=== PATIENT | female | born 2000 | race Caucasian/White ===

== ENCOUNTER 2025-01-08 18:02 | Emergency (ER) | payer MEDICAID ==
--- NOTE | 2025-01-08 19:40 | ED ---
Female Urogenital HPI - General Chief complaint: Vaginal Bleeding Stated complaint: nausea, back pain,early Time Seen by Provider: 01/08/25 19:38 Source: patient, RN notes reviewed Mode of arrival: ambulatory Limitations: no limitations - History of Present Illness Initial comments: 24-year-old female presenting for vaginal bleeding in . Reports light spotting began today. Reports pink on the toilet paper when she wipes and a small amount of blood in her underwear. Believes the spotting has now resolved. She also reports left-sided abdominal cramping worsening today and low back cramping over the past 2 weeks. States she just recently had a positive at-home test 2 days ago. Last menstrual period was December 13. States she had an when she was 15. - Related Data Allergies Allergy/AdvReac Type Severity Reaction Status Date / Time latex Allergy Rash/Hives Verified 01/08/25 18:10 amoxicillin AdvReac Diarrhea Verified 01/08/25 18:10 clavulanic acid AdvReac Diarrhea Verified 01/08/25 18:10 [From Augmentin] Review of Systems ROS Statement: Those systems with pertinent positive or pertinent negative responses have been documented in the HPI. ROS Other: All systems not noted in ROS Statement are negative. Past Medical History Past Medical History: No Reported History History of Any Multi-Drug Resistant Organisms: None Reported Past Surgical History: Adenoidectomy, Orthopedic Surgery, Tonsillectomy Past Psychological History: Bipolar, Depression Smoking Status: Former smoker Past Alcohol Use History: Rare Past Drug Use History: Marijuana General Exam Limitations: no limitations General appearance: alert, in no apparent distress Head exam: Present: atraumatic, normocephalic, normal inspection GI/Abdominal exam: Present: soft, normal bowel sounds. Absent: distended, tenderness, guarding, rebound, rigid Back exam: Absent: CVA tenderness (R), CVA tenderness (L) Neurological exam: Present: alert, oriented X3 Psychiatric exam: Present: normal affect, normal mood Skin exam: Present: warm, dry, intact, normal color. Absent: rash Course Vital Signs 01/08/25 18:03 Temperature 97.8 F Pulse Rate 76 Respiratory 16 Rate Blood Pressure 135/80 O2 Sat by Pulse 99 Oximetry Medical Decision Making - Medical Decision Making Was pt. sent in by a medical professional or institution (Dr., PA, BOWLING ALLEY MANAGER, urgent care, hospital, or snf...) When possible be specific @ -No Did you speak to anyone other than the patient for history (EMS, parent, family, police, friend...)? What history was obtained from this source @ -No Did you review nursing and triage notes (agree or disagree)? Why? @ -I reviewed and agree with nursing and triage notes Were old charts reviewed (outside hosp., previous admission, EMS record, old EKG, old radiological studies, urgent care reports/EKG's, snf records)? Report findings @ -No old charts were reviewed Differential Diagnosis (chest pain, altered mental status, abdominal pain women, abdominal pain men, vaginal bleeding, weakness, fever, dyspnea, syncope, headache, dizziness, GI bleed, back pain, seizure, CVA, palpatations, mental health, musculoskeletal)? @ -Differential Vaginal Bleeding: Spontaneous , threatened , molar , ectopic , bloody show, incompetent cervix, abruptioplacenta, placenta previa, uterine rupture, dysfunctional uterine bleeding, hemorrhage, uterine fibroids, this is not meant to be an all-inclusive list. EKG interpreted by me (3pts min.). @ -None X-rays interpreted by me (1pt min.). @ -None done CT interpreted by me (1pt min.). @ -None done U/S interpreted by me (1pt. min.). @ - ultrasound reveals no intrauterine gestation, complex area within the right ovary with increased lateral color flow, free fluid within the pelvis What testing was considered but not performed or refused? (CT, X-rays, U/S, labs)? Why? @ -None What meds were considered but not given or refused? Why? @ -None Did you discuss the management of the patient with other professionals (professionals i.e. AMANDA Prado, BOWLING ALLEY MANAGER, lab, RT, psych nurse, social group worker, pole framer machine, teacher, investment officer, manager case)? Give summary @ -I spoke with Dr. Amato on-call OB who recommends repeat hCG in 48 hours and close follow-up for repeat ultrasound Was smoking cessation discussed for >3mins.? @ -No Was critical care preformed (if so, how long)? @ -No Were there social determinants of health that impacted care today? How? (Homelessness, low income, unemployed, alcoholism, drug addiction, transportation, low edu. Level, literacy, decrease access to med. care, shelter, rehab)? @ -No Was there de-escalation of care discussed even if they declined (Discuss DNR or withdrawal of care, Hospice)? DNR status @ -No What co-morbidities impacted this encounter? (DM, HTN, Smoking, COPD, CAD, Cancer, CVA, ARF, Chemo, Hep., AIDS, mental health diagnosis, sleep apnea, morbid obesity)? @ -None Was patient admitted / discharged? Hospital course, mention meds given and route, prescriptions, significant lab abnormalities, going to OR and other pertinent info. @ - discharge. 24-year-old female presenting for vaginal bleeding in with associated abdominal cramping. Patient is well-appearing, no acute distress. Abdomen soft and nonsurgical. hCG 222. ultrasound reveals no intrauterine gestation, complex area within the right ovary with increased lateral color flow. Patient is blood type O-. Discussed results with patient. Discussed diagnosis of threatened miscarriage. Discussed that ectopic cannot be ruled out at this time and patient will need close outpatient follow- up for repeat beta hCG and repeat ultrasound. Discussed necessity for giving RhoGAM today due to blood type O-. Patient is agreeable to plan. Appropriate return precautions and follow-up care discussed. Provided with outpatient prescription for repeat beta hCG in 48 hours at the [facility]. I was notified by FAY Bone that patient does not wish to wait for RhoGAM at this time. Discussed risks of refusing RhoGAM and the potential impact on future pregnancies. Patient expresses understanding and opts for discharge without RhoGAM. Case was discussed with my ED attending Dr. Muller. Undiagnosed new problem with uncertain prognosis? @ -No Drug Therapy requiring intensive monitoring for toxicity (Heparin, Nitro, Insulin, Cardizem)? @ -No Were any procedures done? @ -No Diagnosis/symptom? @ -Threatened Acute, or Chronic, or Acute on Chronic? @ -Acute Uncomplicated (without systemic symptoms) or Complicated (systemic symptoms)? @ -Uncomplicated Side effects of treatment? @ -No Exacerbation, Progression, or Severe Exacerbation? @ -No Poses a threat to life or bodily function? How? (Chest pain, USA, [place], pneumonia, PE, COPD, DKA, ARF, appy, cholecystitis, CVA, Diverticulitis, Homicidal, Suicidal, threat to staff... and all critical care pts) @ -Not at this time - Lab Data Result diagrams: 01/08/25 20:09 01/08/25 20:09 Lab Results 01/08/25 01/08/25 01/08/25 Range/Units 20:05 20:09 20:09 WBC 6.83 (4.50-10.00) 10*3/uL RBC 4.27 (4.10-5.20) 10*6/uL Hgb 13.0 (12.0-15.0) g/dL Hct 37.0 L (37.2-46.3) % MCV 86.7 (80.0-97.0) fL MCH 30.4 (27.0-32.0) pg MCHC 35.1 (32.0-37.0) g/dL Plt Count 245 (140-440) 10*3/uL MPV 10.5 (9.5-12.2) fL Immature Gran % (Auto) 0.3 % Neutrophils % 58.9 % Lymphocytes % 32.7 % Monocytes % 6.7 % Eosinophils % 1.0 % Basophils % 0.4 % Immature Gran # 0.02 (0.00-0.04) 10*3/uL Neutrophils # 4.02 (1.80-7.70) 10*3/uL Lymphocytes # 2.23 (0.90-5.00) 10*3/uL Monocytes # 0.46 (0.20-1.00) 10*3/uL Eosinophils # 0.07 (0.04-0.35) 10*3/uL Basophils # 0.03 (0.00-0.10) 10*3/uL Sodium 138 (137-145) mmol/L Potassium 3.8 (3.5-5.1) mmol/L Chloride 104 (98-107) mmol/L Carbon Dioxide 24 (22-30) mmol/L Anion Gap 10 mmol/L BUN 13 (7-17) mg/dL Creatinine 0.67 (0.52-1.04) mg/dL Est GFR (CKD-EPI)AfAm >90 (>60 ml/min/1.73 sqM) Est GFR (CKD-EPI)NonAf >90 (>60 ml/min/1.73 sqM) Glucose 83 (74-99) mg/dL Plasma Lactic Acid [place] (0.7-2.0) mmol/L Calcium 9.1 (8.4-10.2) mg/dL Total Bilirubin 0.4 (0.2-1.3) mg/dL AST 19 (14-36) U/L ALT 14 (4-34) U/L Alkaline Phosphatase 61 (38-126) U/L Total Protein 6.9 (6.3-8.2) g/dL Albumin 4.4 (3.5-5.0) g/dL HCG, Quant 222.3 mIU/mL Urine Color Urine Appearance (Clear) Urine pH (5.0-8.0) Ur Specific [place] (1.001-1.035) Urine Protein (Negative) Urine Glucose (UA) (Negative) Urine Ketones (Negative) Urine Blood (Negative) Urine Nitrite (Negative) Urine Bilirubin (Negative) Urine Urobilinogen (<2.0) mg/dL Ur Leukocyte Esterase (Negative) Urine RBC (0-5) /hpf Urine WBC (0-5) /hpf Ur Squamous Epith Cells (0-4) /hpf Urine Bacteria (None) /hpf Urine Mucus (None) /hpf Blood Type O Negative Blood Type Recheck No Previous Record Bld Type Recheck Status [facility] ONLY 01/08/25 01/08/25 Range/Units 20:09 20:31 WBC (4.50-10.00) 10*3/uL RBC (4.10-5.20) 10*6/uL Hgb (12.0-15.0) g/dL Hct (37.2-46.3) % MCV (80.0-97.0) fL MCH (27.0-32.0) pg MCHC (32.0-37.0) g/dL Plt Count (140-440) 10*3/uL MPV (9.5-12.2) fL Immature Gran % (Auto) % Neutrophils % % Lymphocytes % % Monocytes % % Eosinophils % % Basophils % % Immature Gran # (0.00-0.04) 10*3/uL Neutrophils # (1.80-7.70) 10*3/uL Lymphocytes # (0.90-5.00) 10*3/uL Monocytes # (0.20-1.00) 10*3/uL Eosinophils # (0.04-0.35) 10*3/uL Basophils # (0.00-0.10) 10*3/uL Sodium (137-145) mmol/L Potassium (3.5-5.1) mmol/L Chloride (98-107) mmol/L Carbon Dioxide (22-30) mmol/L Anion Gap mmol/L BUN (7-17) mg/dL Creatinine (0.52-1.04) mg/dL Est GFR (CKD-EPI)AfAm (>60 ml/min/1.73 sqM) Est GFR (CKD-EPI)NonAf (>60 ml/min/1.73 sqM) Glucose (74-99) mg/dL Plasma Lactic Acid [place] 0.8 (0.7-2.0) mmol/L Calcium (8.4-10.2) mg/dL Total Bilirubin (0.2-1.3) mg/dL AST (14-36) U/L ALT (4-34) U/L Alkaline Phosphatase (38-126) U/L Total Protein (6.3-8.2) g/dL Albumin (3.5-5.0) g/dL HCG, Quant mIU/mL Urine Color Light Yellow Urine Appearance Cloudy H (Clear) Urine pH 6.5 (5.0-8.0) Ur Specific [place] 1.027 (1.001-1.035) Urine Protein Negative (Negative) Urine Glucose (UA) Negative (Negative) Urine Ketones Negative (Negative) Urine Blood Negative (Negative) Urine Nitrite Negative (Negative) Urine Bilirubin Negative (Negative) Urine Urobilinogen <2.0 (<2.0) mg/dL Ur Leukocyte Esterase Trace H (Negative) Urine RBC 1 (0-5) /hpf Urine WBC 3 (0-5) /hpf Ur Squamous Epith Cells 8 H (0-4) /hpf Urine Bacteria Rare H (None) /hpf Urine Mucus Few H (None) /hpf Blood Type Blood Type Recheck Bld Type Recheck Status Disposition Clinical Impression: Threatened Disposition: HOME SELF-CARE Condition: Stable Instructions (If sedation given, give patient instructions): Threatened Miscarriage (ED) Additional Instructions: Follow-up in 2 days for repeat beta hCG levels. Your hCG today was 222. This should approximately double every 48 hours. Follow-up with OB next week for repeat ultrasound. Please return to the Emergency Department if symptoms worsen or any other concerns. Is patient prescribed a controlled substance at d/c from ED?: No Referrals: Nonstaff,Physician [Primary Care Provider] - 1-2 days Christian Amato MD [STAFF PHYSICIAN] - 1-2 days Time of Disposition: 22:01
[2025-01-08 20:23] LABS: Basophils # (A) 0.03 10*3/uL (0.00-0.10); Basophils % (A) 0.4 %; Eosinophils # (A) 0.07 10*3/uL (0.04-0.35); Lymphocytes # (A) 2.23 10*3/uL (0.90-5.00); Lymphocytes % (A) 32.7 %; MCH 30.4 pg (27.0-32.0); MCHC 35.1 g/dL (32.0-37.0); MCV 86.7 fL (80.0-97.0); Mean Platelet Volume 10.5 fL (9.5-12.2); Monocytes # (A) 0.46 10*3/uL (0.20-1.00); Monocytes % (A) 6.7 %; Neutrophils # (A) 4.02 10*3/uL (1.80-7.70); Neutrophils % (A) 58.9 %; Platelet Count 245 10*3/uL (140-440); RBC 4.27 10*6/uL (4.10-5.20); RDW 12.7 % (11.5-14.5); WBC 6.83 10*3/uL (4.50-10.00)
[2025-01-08 20:37] LABS: ALT 14 U/L (4-34); AST 19 U/L (14-36); African American GFR (CKD) >90 (>60 ml/min/1.73 sqM); Albumin 4.4 g/dL (3.5-5.0); Alkaline Phosphatase 61 U/L (38-126); Anion Gap 10 mmol/L; Blood Urea Nitrogen 13 mg/dL (7-17); Calcium 9.1 mg/dL (8.4-10.2); Carbon Dioxide 24 mmol/L (22-30); Chloride 104 mmol/L (98-107); Glucose 83 mg/dL (74-99); Non-African American GFR(CKD) >90 (>60 ml/min/1.73 sqM); Potassium 3.8 mmol/L (3.5-5.1); Sodium 138 mmol/L (137-145); Total Bilirubin 0.4 mg/dL (0.2-1.3); Total Protein 6.9 g/dL (6.3-8.2)
[2025-01-08 20:44] LABS: Appearance,Urine Cloudy (Clear); Bacteria,Urine Rare /hpf; Bilirubin,Urine Negative (Negative); Blood,Urine Negative (Negative); Color,Urine Light Yellow; Glucose,Urine (UA) Negative (Negative); Ketones,Urine Negative (Negative); Leukocyte Esterase,Urine Trace (Negative); Mucus,Urine Few /hpf; Nitrite,Urine Negative (Negative); PH, Urine 6.5 (5.0-8.0); Protein,Urine Negative (Negative); RBC,Urine 1 /hpf (0-5); Specific Gravity,Urine 1.027 (1.001-1.035); Squamous Epithelial Cell,Urine 8 /hpf (0-4); Urobilinogen,Urine <2.0 mg/dL (<2.0); WBC,Urine 3 /hpf (0-5)
[2025-01-08 20:54] LABS: HCG,Quantitative Serum 222.3 mIU/mL
--- NOTE | 2025-01-08 21:07 | US ---
EXAMINATION TYPE: Transabdominal DATE OF EXAM: 01/08/2025 8:37 PM COMPARISON: NONE CLINICAL INDICATION: Female, 24 years old with history of Vaginal bleeding in ; pt just had pos preg test Saturday, vag bleeding, pt states last period was 10/26/2024, pt experienced light blee ding but doesn't believe to be period 12/13/2024, light cramping/spotting today, HX of PCOS & Lt ovari an cyst rupture , P: 0, no hx of miscarriage or ectopic preg TECHNIQUE: Transvaginal (TV) and Transabdominal (TA) with grayscale and color Doppler imaging includi ng first trimester . FINDINGS: EXAM MEASUREMENTS: GESTATIONAL AGE / DATING Physician Established: Not yet established Dates by LMP: 10/26/2024 (10 weeks/4 days) EDC: 08/02/2025 Dates by First Scan: No previous this is first scan Dates by Current Scan for: No IUP seen at this time MATERNAL ANATOMY Uterus: 8.1x3.9x5.2cm Right Ovary: 3.6x2.3x2.6cm Complex area seen: 2.8x1.8x 2.5cm Left Ovary: 1.3x1.2x2.2cm Post CDS / Adnexa: Free fluid seen within pelvis Presence of free fluid: yes Presence of corpus luteal cyst: ?possible hypoechoic area seen in Rt ovary Presence of subchorionic bleed: ? possible slightly hypoechoic area seen: 1.0x0.6x0.7cm GESTATION / SURVEY CRL: n/a ( weeks/ days) Gestational Sac morphology: n/a Gestational Sac MSD: n/a ( weeks/ days) Yolk Sac (normal less than 6mm): n/a Cardiac Activity/Heart Rate: n/a bpm IUP: No IUP seen at this time Date of LMP: Last "actual" period per pt: 10/26/2024, spotting on 12/13/2024 Beta HcG (if available): Pending Urinary bladder is sonolucent. Posterior wall is normal. IMPRESSION: 1. No intrauterine gestation. 2. Complex area within the right ovary with increased lateral color-flow. Free fluid is within the pe lvis. Consider ectopic . Spontaneous could be considered. Follow-up and correlation with beta-hCG is recommended. [facility], , 01/08/2025 9:04 PM
[2025-01-08] MEDS ORDERED: Rhogam IMMUNE GLOBULIN 1,500 UNIT/1 ML IM ONE (21:35)
[2025-01-08 23:41] VITALS: BP 111/60; PULSE 69; RESP 19; TEMP 98
== END 2025-01-08 23:41 | disposition home or self-care (01) ==
LOC: EC 18:02
DX: O20.0 Threatened abortion (principal); Z87.891 Personal history of nicotine dependence; Z88.0 Allergy status to penicillin; Z88.1 Allergy status to other antibiotic agents; Z91.040 Latex allergy status; Z3A.00 Weeks of gestation of pregnancy not specified
CPT/HCPCS: 36415; 76801; 76817; 80053; 81001; 83605; 84702; 85025; 86850; 86900; 86901; 99284

== ENCOUNTER → 2025-01-11 | Outpatient (CLI) | payer MEDICAID | END | disposition home or self-care (01) | LOC: LABWHC1 08:28 | PROVIDERS: ATTEND Physician Assistant | DX: O20.0 Threatened abortion (principal); Z3A.00 Weeks of gestation of pregnancy not specified | CPT/HCPCS: 36415; 84702 ==

== ENCOUNTER 2025-01-28 20:43 | Emergency (ER) | payer MEDICAID ==
--- NOTE | 2025-01-28 21:50 | ED ---
General Adult HPI - General Source: patient Mode of arrival: ambulatory Limitations: no limitations <Rubina De Luna - Last Filed: 01/28/25 21:50> - General Source: patient, RN notes reviewed, old records reviewed <Lenard Uribe - Last Filed: 01/29/25 06:37> - General Stated complaint: Nausea/Vomiting, 7 Weeks Preg. Time Seen by Provider: 01/28/25 21:50 - History of Present Illness Initial comments: 24-year-old female currently 7 weeks presenting with chief complaint of nausea and vomiting. She has been taking Reglan at home with little relief. She follows with [facility] in [place]. No vaginal bleeding and no localized pelvic pain. She does admit to diffuse body pain. (Rubina De Luna) Patient is a 24-year-old female. She is a G2, who presents emergency department complaining of nausea vomiting . Is approximately 7 weeks . Has a history of an . Endorses multiple episodes of nonbilious nonbloody vomiting today. Endorses abdominal cramping from all the emesis. Denies any specific abdominal pain. Denies any vaginal discharge or bleeding. Denies any urinary complaints. Denies any chest pain or shortness of breath. Presents for further evaluation at this time. Patient is already on Reglan at home. (Lenard Uribe) - Related Data Allergies Allergy/AdvReac Type Severity Reaction Status Date / Time latex Allergy Rash/Hives Verified 01/28/25 22:40 amoxicillin AdvReac Diarrhea Verified 01/28/25 22:40 clavulanic acid AdvReac Diarrhea Verified 01/28/25 22:40 [From Augmentin] Review of Systems ROS Other: All systems not noted in ROS Statement are negative. <Rubina De Luna - Last Filed: 01/28/25 21:50> ROS Other: All systems not noted in ROS Statement are negative. <Lenard Uribe - Last Filed: 01/29/25 06:37> ROS Statement: Those systems with pertinent positive or pertinent negative responses have been documented in the HPI. Review of Systems: CONST: Denies fever EYES: Denies blurry vision ENT: Denies nasal congestion C/V: Denies Chest pain RESP: Denies shortness of breath GI: Endorses abdominal cramping. : Denies dysuria SKIN: Denies rash. MSK: Denies joint pain. NEURO: Denies headache (Lenard Uribe) Past Medical History Past Medical History: No Reported History History of Any Multi-Drug Resistant Organisms: None Reported Past Surgical History: Adenoidectomy, Orthopedic Surgery, Tonsillectomy Past Psychological History: Bipolar, Depression Smoking Status: Former smoker Past Alcohol Use History: Rare Past Drug Use History: Marijuana <Rubina De Luna - Last Filed: 01/28/25 21:50> General Exam <Rubina De Luna - Last Filed: 01/28/25 21:50> <Lenard Uribe - Last Filed: 01/29/25 06:37> - General Exam Comments Initial Comments: Visual Physical Exam Vital signs reviewed General: Well-appearing, nontoxic, no acute distress. Head: Normocephalic, atraumatic Eyes: PERRLA, EOMI ENT: Airway patent Chest: Nonlabored breathing Skin: No visual rash, normal skin tone Neuro: Alert and oriented 3 Musculoskeletal: No gross abnormalities (Rubina De Luna) General: Appears in mild distress secondary to nausea. HEAD: Normal with no signs of head trauma. EYES: EOMI ENT: Hearing grossly intact. Dry mucous membranes. RESPIRATORY: Clear breath sounds bilaterally. No wheezes, rales, or rhonchi. C/V: Regular rate and rhythm. S1 and S2 auscultated, no edema, peripheral pulses 2+ and intact throughout ABD: Abdomen soft, nondistended. No focal tenderness to palpation. EXT: Normal range of motion, no obvious deformity SKIN: No rashes or lesions observed on exposed skin. NEURO: Alert and oriented x 4. (Lenard Uribe) Course Vital Signs 01/28/25 01/29/25 22:35 02:25 Temperature 97.9 F 97.8 F Pulse Rate 80 69 Respiratory 18 18 Rate Blood Pressure 131/77 128/81 O2 Sat by Pulse 98 99 Oximetry Medical Decision Making <Rubina De Luna - Last Filed: 01/28/25 21:50> - Lab Data Result diagrams: 01/28/25 22:56 01/28/25 22:56 <Lenard Uribe - Last Filed: 01/29/25 06:37> - Medical Decision Making I performed the quick note portion of this visit, electronically signed Rubina De Luna PA-C (Rubina De Luna) Was pt. sent in by a medical professional or institution (AMANDA Prado, COMMISSARY PRODUCTION SUPERVISOR, urgent care, hospital, or intermediate...) When possible be specific @ -No Did you speak to anyone other than the patient for history (EMS, parent, family, police, friend...)? What history was obtained from this source @ -No Did you review nursing and triage notes (agree or disagree)? Why? @ -I reviewed and agree with nursing and triage notes Were old charts reviewed (outside hosp., previous admission, EMS record, old EKG, old radiological studies, urgent care reports/EKG's, intermediate records)? Report findings @ -No old charts were reviewed Differential Diagnosis (chest pain, altered mental status, abdominal pain women, abdominal pain men, vaginal bleeding, weakness, fever, dyspnea, syncope, headache, dizziness, GI bleed, back pain, seizure, CVA, palpatations, mental health, musculoskeletal)? @ -Dehydration, , electrolyte abnormality. This list is not all- inclusive. EKG interpreted by me (3pts min.). @ -None done X-rays interpreted by me (1pt min.). @ -None done CT interpreted by me (1pt min.). @ -None done U/S interpreted by me (1pt. min.). @ -Ultrasound reveals definitive IUP with gestational age of 7 weeks and heart rate of 129 bpm. What testing was considered but not performed or refused? (CT, X-rays, U/S, labs)? Why? @ -None What meds were considered but not given or refused? Why? @ -None Did you discuss the management of the patient with other professionals (professionals i.e. AMANDA Prado, COMMISSARY PRODUCTION SUPERVISOR, lab, RT, psych nurse, social media editor, dental laboratory manager, teacher, chief informatics officer, caser up)? Give summary @ -No Was smoking cessation discussed for >3mins.? @ -No Was critical care preformed (if so, how long)? @ -No Were there social determinants of health that impacted care today? How? (Homelessness, low income, unemployed, alcoholism, drug addiction, transportation, low edu. Level, literacy, decrease access to med. care, residential, rehab)? @ -No Was there de-escalation of care discussed even if they declined (Discuss DNR or withdrawal of care, Hospice)? DNR status @ -No What co-morbidities impacted this encounter? (DM, HTN, Smoking, COPD, CAD, Cancer, CVA, ARF, Chemo, Hep., AIDS, mental health diagnosis, sleep apnea, morbid obesity)? @ -None Was patient admitted / discharged? Hospital course, mention meds given and route, prescriptions, significant lab abnormalities, going to OR and other pertinent info. @ -Patient presents emergency department complaining of nausea and vomiting . Is approximately 7 weeks . He is having some abdominal cramping. We will obtain an ultrasound of the pelvis, as well as laboratory studies. Patient will be symptomatically treated with IV Zofran, 1 L IV fluids, as well as 1 L of D5 normal saline. She was in agreement this plan. Ultrasound revealed a definitive IUP gestational age of 7 weeks and heart rate that is adequate. Labs are remarkable for mild leukocytosis of 12 which is likely reactive. Remainder the labs unremarkable. Quantitative beta-hCG is as expected. Update the patient. Still no urine sample but at this time patient will be discharged home. She is tolerating oral intake. She was in agreement this plan. Strict return precautions discussed. Undiagnosed new problem with uncertain prognosis? @ -No Drug Therapy requiring intensive monitoring for toxicity (Heparin, Nitro, Insulin, Cardizem)? @ -No Were any procedures done? @ -No Diagnosis/symptom? @ -Nausea and vomiting in . Acute, or Chronic, or Acute on Chronic? @ -Acute Uncomplicated (without systemic symptoms) or Complicated (systemic symptoms)? @ -Uncomplicated Side effects of treatment? @ -No Exacerbation, Progression, or Severe Exacerbation? @ -No Poses a threat to life or bodily function? How? (Chest pain, [place], [place], pneumonia, PE, COPD, DKA, ARF, appy, cholecystitis, CVA, Diverticulitis, Homicidal, Suicidal, threat to staff... and all critical care pts) @ -Unlikely at this time (Lenard Uribe) - Lab Data Lab Results 01/28/25 01/28/25 Range/Units 22:56 22:56 WBC 12.10 H (4.50-10.00) 10*3/uL RBC 4.95 (4.10-5.20) 10*6/uL Hgb 15.0 (12.0-15.0) g/dL Hct 42.5 (37.2-46.3) % MCV 85.9 (80.0-97.0) fL MCH 30.3 (27.0-32.0) pg MCHC 35.3 (32.0-37.0) g/dL Plt Count 294 (140-440) 10*3/uL MPV 10.7 (9.5-12.2) fL Immature Gran % (Auto) 0.2 % Neutrophils % 80.2 % Lymphocytes % 13.8 % Monocytes % 5.3 % Eosinophils % 0.3 % Basophils % 0.2 % Immature Gran # 0.03 (0.00-0.04) 10*3/uL Neutrophils # 9.69 H (1.80-7.70) 10*3/uL Lymphocytes # 1.67 (0.90-5.00) 10*3/uL Monocytes # 0.64 (0.20-1.00) 10*3/uL Eosinophils # 0.04 (0.04-0.35) 10*3/uL Basophils # 0.03 (0.00-0.10) 10*3/uL Sodium 137 (137-145) mmol/L Potassium 4.3 (3.5-5.1) mmol/L Chloride 99 (98-107) mmol/L Carbon Dioxide 25 (22-30) mmol/L Anion Gap 13 mmol/L BUN 9 (7-17) mg/dL Creatinine 0.51 L (0.52-1.04) mg/dL Est GFR (CKD-EPI)AfAm >90 (>60 ml/min/1.73 sqM) Est GFR (CKD-EPI)NonAf >90 (>60 ml/min/1.73 sqM) Glucose 78 (74-99) mg/dL Calcium 10.6 H (8.4-10.2) mg/dL Magnesium 2.1 (1.6-2.3) mg/dL Total Bilirubin 0.7 (0.2-1.3) mg/dL AST 24 (14-36) U/L ALT 17 (4-34) U/L Alkaline Phosphatase 54 (38-126) U/L Total Protein 8.0 (6.3-8.2) g/dL Albumin 5.2 H (3.5-5.0) g/dL HCG, Quant 738245.0 mIU/mL Disposition <Rubina De Luna - Last Filed: 01/28/25 21:50> Is patient prescribed a controlled substance at d/c from ED?: No Time of Disposition: 01:53 <Lenard Uribe - Last Filed: 01/29/25 06:37> Clinical Impression: Nausea and vomiting during Disposition: HOME SELF-CARE Condition: Good Instructions (If sedation given, give patient instructions): Acute Nausea and Vomiting (ED) Referrals: Roula Ayala DO [Primary Care Provider] - 1-2 days
[2025-01-28 22:40] VITALS: RESP 18
[2025-01-28 23:11] LABS: Basophils # (A) 0.03 10*3/uL (0.00-0.10); Basophils % (A) 0.2 %; Eosinophils # (A) 0.04 10*3/uL (0.04-0.35); Eosinophils % (A) 0.3 %; HCT 42.5 % (37.2-46.3); Lymphocytes # (A) 1.67 10*3/uL (0.90-5.00); Lymphocytes % (A) 13.8 %; MCH 30.3 pg (27.0-32.0); MCHC 35.3 g/dL (32.0-37.0); MCV 85.9 fL (80.0-97.0); Mean Platelet Volume 10.7 fL (9.5-12.2); Monocytes # (A) 0.64 10*3/uL (0.20-1.00); Monocytes % (A) 5.3 %; Neutrophils # (A) 9.69 10*3/uL (1.80-7.70); Neutrophils % (A) 80.2 %; Platelet Count 294 10*3/uL (140-440); RBC 4.95 10*6/uL (4.10-5.20); RDW 12.8 % (11.5-14.5)
[2025-01-28 23:26] LABS: ALT 17 U/L (4-34); AST 24 U/L (14-36); African American GFR (CKD) >90 (>60 ml/min/1.73 sqM); Albumin 5.2 g/dL (3.5-5.0); Alkaline Phosphatase 54 U/L (38-126); Anion Gap 13 mmol/L; Blood Urea Nitrogen 9 mg/dL (7-17); Calcium 10.6 mg/dL (8.4-10.2); Carbon Dioxide 25 mmol/L (22-30); Chloride 99 mmol/L (98-107); Glucose 78 mg/dL (74-99); Magnesium 2.1 mg/dL (1.6-2.3); Non-African American GFR(CKD) >90 (>60 ml/min/1.73 sqM); Potassium 4.3 mmol/L (3.5-5.1); Sodium 137 mmol/L (137-145); Total Bilirubin 0.7 mg/dL (0.2-1.3)
[2025-01-28] MEDS: SODIUM CHLORIDE 0.9% 1,000 ML IV ONE (23:40)
[2025-01-28] MEDS: SODIUM CHLORIDE 0.9% 1,000 ML IV SCH (23:41)
[2025-01-28] MEDS: DEXTROSE 5%-0.9% NACL 1,000 ML IV SCH (23:51)
[2025-01-28] MEDS: ONDANSETRON 4 MG/2 ML VIAL IVP STA (23:52)
--- NOTE | 2025-01-29 | US ---
EXAMINATION TYPE: Transabdominal DATE OF EXAM: 01/28/2025 11:41 PM COMPARISON: US 01/08/2025 CLINICAL INDICATION: Female, 24 years old with history of abd cramping, ; abd cramping, naus ea. patient states US done yesterday at office TECHNIQUE: Transabdominal (TA) with grayscale and color Doppler imaging including first trimester pre gnancy. FINDINGS: EXAM MEASUREMENTS: GESTATIONAL AGE / DATING Physician Established: (7 weeks/1 days) EDC: 09/15/2025 Dates by LMP: LMP unknown Dates by First Scan: No previous this is first scan Dates by Current Scan for: (7 weeks/0 days) EDC: 09/15/2025 MATERNAL ANATOMY Uterus: 10.6 x 5.1 x 5.9cm. Anteverted Right Ovary: 3.3x 2.7 x 2.8cm. There is a 2.5 x 1.8 x 1.7cm anechoic area seen within Left Ovary: 2.0 x 1.5 x 2.1cm Post CDS / Adnexa: wnl Presence of free fluid: not seen Presence of corpus luteal cyst: 2.5 x 1.8 x 1.7cm anechoic area within the right ovary Presence of subchorionic bleed: no GESTATION / SURVEY CRL: 9.25mm (7 weeks/0 days) Gestational Sac morphology: Normal Yolk Sac (normal less than 6mm): 3mm Cardiac Activity/Heart Rate: 129 bpm Rhythm: Normal IUP: Viable IUP Beta HcG (if available): Not available at this time IMPRESSION: Single live intrauterine with calculated ultrasound age of 7 weeks 0 days by crown rump isela gth with an estimated date of delivery of 09/15/2025. [facility], , 01/28/2025 11:58 PM
[2025-01-29] MEDS: ONDANSETRON 4 MG ODT STARTER PACK 2 TAB BTL PO STA (02:18)
[2025-01-29 02:27] VITALS: BP 128/81; PULSE 69; TEMP 97.8
== END 2025-01-29 02:25 | disposition home or self-care (01) ==
LOC: EC 20:43
DX: O21.9 Vomiting of pregnancy, unspecified (principal); Z3A.01 Less than 8 weeks gestation of pregnancy; Z88.0 Allergy status to penicillin; Z88.1 Allergy status to other antibiotic agents; Z91.040 Latex allergy status; Z87.891 Personal history of nicotine dependence
CPT/HCPCS: 80053; 83735; 85025; 84702; 76801; 99284; 96374; 96361 ×2; J2405; 36415

== ENCOUNTER 2025-03-01 08:37 | Emergency (ER) | payer MEDICAID, OTHER ==
[2025-03-01 08:46] VITALS: RESP 20
--- NOTE | 2025-03-01 09:08 | ED ---
General Adult HPI - General Chief complaint: Vaginal Bleeding Stated complaint: 12wks Time Seen by Provider: 03/01/25 08:43 Source: patient Mode of arrival: ambulatory Limitations: no limitations - History of Present Illness Initial comments: Dictation was produced using [employer] dictation software. please excuse any grammatical, word or spelling errors. Chief Complaint: 24-year-old female with vaginal bleeding in History of Present Illness: Patient 24-year-old female presents emergency department vaginal bleeding in . Patient was allegedly approximate 12 weeks. This morning she woke up had some vaginal bleeding numbness. She does report associated cramping. Patient has been before which she states was terminated due to . States that she been very nauseated recently. The ROS documented in this emergency department record has been reviewed and confirmed by me. Those systems with pertinent positive or negative responses have been documented in the HPI. All other systems are other negative and/or noncontributory. - Related Data Allergies Allergy/AdvReac Type Severity Reaction Status Date / Time latex Allergy Rash/Hives Verified 03/01/25 08:46 amoxicillin AdvReac Diarrhea Verified 03/01/25 08:46 clavulanic acid AdvReac Diarrhea Verified 03/01/25 08:46 [From Augmentin] Review of Systems ROS Statement: Those systems with pertinent positive or pertinent negative responses have been documented in the HPI. ROS Other: All systems not noted in ROS Statement are negative. Past Medical History Past Medical History: No Reported History History of Any Multi-Drug Resistant Organisms: None Reported Past Surgical History: Adenoidectomy, Orthopedic Surgery, Tonsillectomy Past Psychological History: Bipolar, Depression Smoking Status: Former smoker Past Alcohol Use History: Rare Past Drug Use History: Marijuana General Exam - General Exam Comments Initial Comments: PHYSICAL EXAM: General Impression: Alert and oriented x3, not in acute distress HEENT: Normocephalic atraumatic, extra-ocular movements intact, pupils equal and reactive to light bilaterally, mucous membranes moist. Cardiovascular: Heart regular rate and rhythm Chest: Able to complete full sentences, no retractions, no tachypnea Abdomen: abdomen soft, non-tender, non-distended, no organomegaly Musculoskeletal: Pulses present and equal in all extremities, no peripheral edema Motor: no focal deficits noted Neurological: CN II-XII grossly intact, no focal motor or sensory deficits noted Skin: Intact with no visualized rashes Psych: Normal affect and mood Limitations: no limitations Course Vital Signs 03/01/25 08:43 Temperature 98.6 F Pulse Rate 74 Respiratory 20 Rate Blood Pressure 124/74 O2 Sat by Pulse 97 Oximetry Medical Decision Making - Medical Decision Making Was pt. sent in by a medical professional or institution (, [facility], PR[employer] S[employer] ENGINEER, urgent care, hospital, or group home...) When possible be specific @ -No Did you speak to anyone other than the patient for history (EMS, parent, family, police, friend...)? What history was obtained from this source @ -No Did you review nursing and triage notes (agree or disagree)? Why? @ -I reviewed and agree with nursing and triage notes Were old charts reviewed (outside hosp., previous admission, EMS record, old EKG, old radiological studies, urgent care reports/EKG's, group home records)? Report findings @ -No old charts were reviewed Differential Diagnosis (chest pain, altered mental status, abdominal pain women, abdominal pain men, vaginal bleeding, musculoskeletal, weakness, fever, dyspnea, syncope, headache, dizziness, GI bleed, back pain, seizure, CVA, palpatations, mental health)? @ -Differential Vaginal Bleeding: Spontaneous , threatened , molar , ectopic , bloody show, incompetent cervix, abruptioplacenta, placenta previa, uterine rupture, dysfunctional uterine bleeding, hemorrhage, uterine fibroids, this is not meant to be an all-inclusive list. EKG interpreted by me (3pts min.). @ -None done X-rays interpreted by me (1pt min.). @ -None done CT interpreted by me (1pt min.). @ -None done U/S interpreted by me (1pt. min.). @ -Ultrasound shows intrauterine What testing was considered but not performed or refused? (CT, X-rays, U/S, labs)? Why? @ -None What meds were considered but not given or refused? Why? @ -None Was smoking cessation discussed for >3mins.? @ -No Were there social determinants of health that impacted care today? How? (Homelessness, low income, unemployed, alcoholism, drug addiction, transporta tion, low edu. Level, literacy, decrease access to med. care, alf, rehab)? @ -No Was there de-escalation of care discussed even if they declined (Discuss DNR or withdrawal of care, Hospice)? DNR status @ -No What co-morbidities impacted this encounter? (DM, HTN, Smoking, COPD, CAD, Cancer, CVA, ARF, Chemo, Hep., AIDS, mental health diagnosis, sleep apnea, morbid obesity)? @ -None Was patient admitted / discharged? Hospital course, mention meds given and route, prescriptions, significant lab abnormalities, going to OR and other pertinent info. @ -24-year-old vaginal bleeding and pelvic discomfort in . Vital signs upon arrival are within acceptable limits. Patient refusing pelvic exam. Laboratory evaluation unremarkable. Urinalysis however does show 8 white blood cells. Ultrasounds show subchorionic bleed. Patient observed emergency department reevaluated at 11:30 AM found to be stable to condition. Patient given prescription for Keflex and RhoGAM. Advised follow-up with SAFETY SUPERVISOR Did you discuss the management of the patient with other professionals (professionals i.e. , PA, PRODUCT SAF[employer] AND STANDARDS ENGINEER, lab, RT, psych nurse, certified social workers in health care, finisher denture, teacher, parole hearing officer, outsole caser)? Give summary @ -No Was critical care preformed (if so, how long)? @ -No Undiagnosed new problem with uncertain prognosis? @ -No Drug Therapy requiring intensive monitoring for toxicity (Heparin, Nitro, Insulin, Cardizem)? @ -No Were any procedures done? @ -No Diagnosis/symptom? Acute, or Chronic, or Acute on Chronic? Uncomplicated (without systemic symptoms) or Complicated (systemic symptoms)? @ -Subchorionic bleed Side effects of treatment? @ -No Exacerbation, Progression, or Severe Exacerbation? @ -No Poses a threat to life or bodily function? How? (Chest pain, [place], [place], pneumonia, PE, COPD, DKA, ARF, appy, cholecystitis, CVA, Diverticulitis, Homicidal, Suicidal, threat to staff... and all critical care pts) @ -yes - Lab Data Result diagrams: 03/01/25 09:06 03/01/25 09:06 Lab Results 03/01/25 03/01/25 03/01/25 Range/Units 09:06 09:06 09:06 WBC 6.72 (4.50-10.00) 10*3/uL RBC 4.46 (4.10-5.20) 10*6/uL Hgb 13.4 (12.0-15.0) g/dL Hct 38.3 (37.2-46.3) % MCV 85.9 (80.0-97.0) fL MCH 30.0 (27.0-32.0) pg MCHC 35.0 (32.0-37.0) g/dL Plt Count 212 (140-440) 10*3/uL MPV 10.3 (9.5-12.2) fL Immature Gran % (Auto) 0.3 % Neutrophils % 73.8 % Lymphocytes % 18.6 % Monocytes % 6.4 % Eosinophils % 0.6 % Basophils % 0.3 % Immature Gran # 0.02 (0.00-0.04) 10*3/uL Neutrophils # 4.96 (1.80-7.70) 10*3/uL Lymphocytes # 1.25 (0.90-5.00) 10*3/uL Monocytes # 0.43 (0.20-1.00) 10*3/uL Eosinophils # 0.04 (0.04-0.35) 10*3/uL Basophils # 0.02 (0.00-0.10) 10*3/uL PT 10.3 (10.0-12.5) sec INR 0.9 (<1.2) APTT 22.7 (22.0-30.0) sec Sodium 138 (137-145) mmol/L Potassium 4.0 (3.5-5.1) mmol/L Chloride 105 (98-107) mmol/L Carbon Dioxide 25 (22-30) mmol/L Anion Gap 8 mmol/L BUN 5 L (7-17) mg/dL Creatinine 0.51 L (0.52-1.04) mg/dL Est GFR (CKD-EPI)AfAm >90 (>60 ml/min/1.73 sqM) Est GFR (CKD-EPI)NonAf >90 (>60 ml/min/1.73 sqM) Glucose 81 (74-99) mg/dL Calcium 9.9 (8.4-10.2) mg/dL Total Bilirubin 0.5 (0.2-1.3) mg/dL AST 18 (14-36) U/L ALT 13 (4-34) U/L Alkaline Phosphatase 45 (38-126) U/L Total Protein 6.6 (6.3-8.2) g/dL Albumin 4.1 (3.5-5.0) g/dL HCG, Quant 43597.8 mIU/mL Urine Color Urine Appearance (Clear) Urine pH (5.0-8.0) Ur Specific [place] (1.001-1.035) Urine Protein (Negative) Urine Glucose (UA) (Negative) Urine Ketones (Negative) Urine Blood (Negative) Urine Nitrite (Negative) Urine Bilirubin (Negative) Urine Urobilinogen (<2.0) mg/dL Ur Leukocyte Esterase (Negative) Urine RBC (0-5) /hpf Urine WBC (0-5) /hpf Urine WBC Clumps (None) /hpf Ur Squamous Epith Cells (0-4) /hpf Urine Bacteria (None) /hpf Urine Mucus (None) /hpf Urine Yeast (Budding) (None) /hpf Blood Type Blood Type Recheck Bld Type Recheck Status Antibody Screen Spec Expiration Date 03/01/25 03/01/25 Range/Units 09:06 09:08 WBC (4.50-10.00) 10*3/uL RBC (4.10-5.20) 10*6/uL Hgb (12.0-15.0) g/dL Hct (37.2-46.3) % MCV (80.0-97.0) fL MCH (27.0-32.0) pg MCHC (32.0-37.0) g/dL Plt Count (140-440) 10*3/uL MPV (9.5-12.2) fL Immature Gran % (Auto) % Neutrophils % % Lymphocytes % % Monocytes % % Eosinophils % % Basophils % % Immature Gran # (0.00-0.04) 10*3/uL Neutrophils # (1.80-7.70) 10*3/uL Lymphocytes # (0.90-5.00) 10*3/uL Monocytes # (0.20-1.00) 10*3/uL Eosinophils # (0.04-0.35) 10*3/uL Basophils # (0.00-0.10) 10*3/uL PT (10.0-12.5) sec INR (<1.2) APTT (22.0-30.0) sec Sodium (137-145) mmol/L Potassium (3.5-5.1) mmol/L Chloride (98-107) mmol/L Carbon Dioxide (22-30) mmol/L Anion Gap mmol/L BUN (7-17) mg/dL Creatinine (0.52-1.04) mg/dL Est GFR (CKD-EPI)AfAm (>60 ml/min/1.73 sqM) Est GFR (CKD-EPI)NonAf (>60 ml/min/1.73 sqM) Glucose (74-99) mg/dL Calcium (8.4-10.2) mg/dL Total Bilirubin (0.2-1.3) mg/dL AST (14-36) U/L ALT (4-34) U/L Alkaline Phosphatase (38-126) U/L Total Protein (6.3-8.2) g/dL Albumin (3.5-5.0) g/dL HCG, Quant mIU/mL Urine Color Light Yellow Urine Appearance Cloudy H (Clear) Urine pH 7.0 (5.0-8.0) Ur Specific [place] 1.011 (1.001-1.035) Urine Protein Negative (Negative) Urine Glucose (UA) Negative (Negative) Urine Ketones Negative (Negative) Urine Blood Large H (Negative) Urine Nitrite Negative (Negative) Urine Bilirubin Negative (Negative) Urine Urobilinogen <2.0 (<2.0) mg/dL Ur Leukocyte Esterase Negative (Negative) Urine RBC 2 (0-5) /hpf Urine WBC 8 H (0-5) /hpf Urine WBC Clumps Few H (None) /hpf Ur Squamous Epith Cells 2 (0-4) /hpf Urine Bacteria Many H (None) /hpf Urine Mucus Rare H (None) /hpf Urine Yeast (Budding) Few H (None) /hpf Blood Type O Negative Blood Type Recheck O Neg Bld Type Recheck Status No Antibody Screen NEGATIVE Spec Expiration Date 03/04/20252305 Disposition Clinical Impression: Subchorionic bleed Disposition: HOME SELF-CARE Instructions (If sedation given, give patient instructions): Threatened Miscarriage (ED) Is patient prescribed a controlled substance at d/c from ED?: No Referrals: Roula Ayala DO [Primary Care Provider] - 1-2 days Time of Disposition: 11:34
[2025-03-01 09:27] LABS: Basophils # (A) 0.02 10*3/uL (0.00-0.10); Basophils % (A) 0.3 %; Eosinophils # (A) 0.04 10*3/uL (0.04-0.35); Eosinophils % (A) 0.6 %; HCT 38.3 % (37.2-46.3); HGB 13.4 g/dL (12.0-15.0); Lymphocytes # (A) 1.25 10*3/uL (0.90-5.00); Lymphocytes % (A) 18.6 %; MCH 30.0 pg (27.0-32.0); MCHC 35.0 g/dL (32.0-37.0); MCV 85.9 fL (80.0-97.0); Monocytes # (A) 0.43 10*3/uL (0.20-1.00); Monocytes % (A) 6.4 %; Neutrophils # (A) 4.96 10*3/uL (1.80-7.70); Neutrophils % (A) 73.8 %; Platelet Count 212 10*3/uL (140-440); RBC 4.46 10*6/uL (4.10-5.20); RDW 13.2 % (11.5-14.5); WBC 6.72 10*3/uL (4.50-10.00)
[2025-03-01] MEDS: SODIUM CHLORIDE 0.9% 1,000 ML IV STA (09:30)
[2025-03-01 09:31] LABS: ALT 13 U/L (4-34); AST 18 U/L (14-36); African American GFR (CKD) >90 (>60 ml/min/1.73 sqM); Albumin 4.1 g/dL (3.5-5.0); Alkaline Phosphatase 45 U/L (38-126); Anion Gap 8 mmol/L; Blood Urea Nitrogen 5 mg/dL (7-17); Calcium 9.9 mg/dL (8.4-10.2); Carbon Dioxide 25 mmol/L (22-30); Chloride 105 mmol/L (98-107); Glucose 81 mg/dL (74-99); Non-African American GFR(CKD) >90 (>60 ml/min/1.73 sqM); Potassium 4.0 mmol/L (3.5-5.1); Sodium 138 mmol/L (137-145); Total Protein 6.6 g/dL (6.3-8.2)
--- NOTE | 2025-03-01 09:43 | US ---
EXAMINATION TYPE: US OB limited DATE OF EXAM: 03/01/2025 COMPARISON: NONE CLINICAL INDICATION: Female, 24 years old with history of pelvic pain; scant amount of blood seen wit h cramping today TECHNIQUE:: OBTA FINDINGS: GESTATIONAL AGE / DATING Physician Established: (12 weeks/0 days) EDC: 09/13/2025 No growth performed on today?s study per ordering physician SURVEY CERVICAL LENGTH (transabdominal: norm > 3.0cm): 3.0 cm HEART RATE: 163 bpm RHYTHM: Normal hypoechoic area noted inferior to gestation sac may represent subchorionic bleed = 3.8 x 0.7 x 3.8c m IMPRESSION: Single viable intrauterine with subchorionic hemorrhage as noted. [facility], , 03/01/2025 9:41 AM
[2025-03-01 09:49] LABS: Bacteria,Urine Many /hpf; Bilirubin,Urine Negative (Negative); Blood,Urine Large (Negative); Budding Yeast,Urine Few /hpf; Color,Urine Light Yellow; Glucose,Urine (UA) Negative (Negative); Ketones,Urine Negative (Negative); Leukocyte Esterase,Urine Negative (Negative); Mucus,Urine Rare /hpf; Nitrite,Urine Negative (Negative); PH, Urine 7.0 (5.0-8.0); Protein,Urine Negative (Negative); RBC,Urine 2 /hpf (0-5); Specific Gravity,Urine 1.011 (1.001-1.035); Squamous Epithelial Cell,Urine 2 /hpf (0-4); Urobilinogen,Urine <2.0 mg/dL (<2.0); WBC,Urine 8 /hpf (0-5)
[2025-03-01 10:01] LABS: INR 0.9 (<1.2); Partial Thromboplastin Time 22.7 sec (22.0-30.0); Prothrombin Time 10.3 sec (10.0-12.5)
[2025-03-01 10:45] LABS: HCG,Quantitative Serum 65612.8 mIU/mL
[2025-03-01] MEDS: Rhogam IMMUNE GLOBULIN 1,500 UNIT/1 ML IM ONE (11:28)
[2025-03-01 12:00] VITALS: BP 106/68; PULSE 80; TEMP 98.4
== END 2025-03-01 12:00 | disposition home or self-care (01) ==
LOC: EC 08:37
DX: O46.91 Antepartum hemorrhage, unspecified, first trimester (principal); Z87.891 Personal history of nicotine dependence; Z88.0 Allergy status to penicillin; Z88.1 Allergy status to other antibiotic agents; Z91.040 Latex allergy status; Z3A.12 12 weeks gestation of pregnancy
CPT/HCPCS: 36415; 86900; 86901; 80053; 85025; 85610; 85730; 86850; 81001; 84702; 76815; 99284; 96360; 96372; J2790